=== PATIENT | male | born 1965 | race Caucasian/White ===

== ENCOUNTER 2019-07-10 15:01 | Emergency (ER) | payer BC ==
[2019-07-10] MEDS ORDERED: HYDROcod/ACETAM 5/325 MG TABLET PO STA (15:37)
[2019-07-10] MEDS ORDERED: CYCLOBENZAPRINE 10 MG TABLET PO STA (15:37)
--- NOTE | 2019-07-10 15:39 | ED Physician Documentation ---
PD HPI BACK PAIN - Stated complaint Stated Complaint: BACK PX - Chief complaint Chief Complaint: Back Pain - History obtained from History obtained from: Patient (5 days ago he was lifting sacks of grain. That night developed mild low back pain which was much more severe the next morning and making it difficult to get out of bed. It is kind of been getting better and then got worse again after another heavy day yesterday. It is in the low back. He has no history of low back pain. No major medical issues. No weakness, numbness, tingling, saddle anesthesia, fevers, or incontinence.) Review of Systems Constitutional: denies: Fever, Chills Nose: denies: Rhinorrhea / runny nose, Congestion Cardiac: denies: Chest pain / pressure, Palpitations Respiratory: denies: Dyspnea, Cough PD PAST MEDICAL HISTORY - Past Medical History Past Medical History: No - Past Surgical History Past Surgical History: No - Present Medications Home Medications: Ambulatory Orders Medication Instructions Recorded Confirmed Cyclobenzaprine [Flexeril] 10 mg PO TID PRN #20 tablet 07/10/19 Hydrocodone/Acetaminophen 1 - 2 each PO Q6H PRN #14 tablet 07/10/19 [Hydrocodon-Acetaminophen 5-325] - Allergies Allergies/Adverse Reactions: Allergies Allergy/AdvReac Type Severity Reaction Status Date / Time No Known Drug Allergies Allergy Verified 07/10/19 15:05 - Social History Does the pt smoke?: No Smoking Status: Never smoker - POLST Patient has POLST: No PD ED PE NORMAL - Vitals Vital signs reviewed: Yes - General General: Alert and oriented X 3, No acute distress - Back Back: Other (Tenderness of the low lumbar spine and left paralumbar musculature, no rash or deformity. The patient has equal and normal Achilles and patellar reflexes bilaterally. Normal sensation in all areas of the legs. Patient denies saddle anesthesia. Normal strength in flexion-extension at the ankles, knees, and flexion of the hips.) - Neuro Neuro: Alert and oriented X 3, Normal speech Results - Vitals Vitals: Vital Signs - 24 hr 07/10/19 15:05 Temperature 36.7 C Heart Rate 58 L Respiratory 16 Rate Blood Pressure 140/89 H O2 Saturation 100 Oxygen O2 Source Room air PD MEDICAL DECISION MAKING - ED course ED course: This is a 53-year-old gentleman with uncomplicated low back pain without "red flags." He had been taking ibuprofen at home with only modest relief. Departure - Departure Disposition: 01 Home, Self Care Clinical Impression: Back pain Qualifiers: Back pain location: low back pain Chronicity: acute Back pain laterality: midline Sciatica presence: without sciatica Qualified Code(s): M54.5 - Low back pain Condition: Good Record reviewed to determine appropriate education?: Yes Instructions: ED Low Back Pain Injury Prescriptions: Cyclobenzaprine [Flexeril] 10 mg PO TID PRN #20 tablet PRN Reason: Spasms Hydrocodone/Acetaminophen [Hydrocodon-Acetaminophen 5-325] 1 - 2 each PO Q6H PRN #14 tablet PRN Reason: pain Comments: As discussed I expect this will get completely better with conservative measures and some pain medication and muscle relaxers. If not better by the beginning of the week next week talk with your doctor about a referral for physical therapy. Return for new or worsening symptoms. Do not drink or drive while taking narcotic pain medication. Note that many narcotic pain relievers also contain Tylenol/acetaminophen. Please ensure that your total dose of acetaminophen from all sources does not exceed 3 g (3000 mg) per day. You may get constipated while on this medication. Take a stool softener such as Colace twice a day while you are on it. Also add an [id number] laxative such as senna or MiraLAX on any day that you do not have a bowel movement. If you received a narcotic pain medication or sedative while in the emergency department, do not drive for the next 24 hours.
[2019-07-10 16:09] VITALS: BP 140/84
== END 2019-07-10 16:00 | disposition home or self-care (01) ==
LOC: ED 15:01
DX: M54.5 Low back pain (principal); X50.0XXA Overexertion from strenuous movement or load, initial encounter; Y93.89 Activity, other specified
CPT/HCPCS: 99282; 99283; A9270